=== PATIENT | male | born 1980 | race Caucasian/White ===

== ENCOUNTER 2017-10-24 21:49 | Emergency (ER) | payer OTHER ==
[2017-10-24 22:05] VITALS: BP 133/74
[2017-10-24] MEDS ORDERED: Sulfamethox/Trimethoprim DS 800/160* TAB PO ONE (22:07)
[2017-10-24] MEDS ORDERED: Ketorolac INJ* 60 MG/2 ML VIAL IM ONE (22:07)
--- NOTE | 2017-10-24 22:18 | UC ---
Nakul Lawler Elizabeth, scribed for Wale Robles MD on 10/24/17 at 2213 . Skin Complaint HPI - HPI Summary HPI Summary: This patient is a 37 year old M presenting to [facility] with a chief complaint of a red, swollen bug bite on his left great toe since earlier this afternoon.The patient thinks that a spider may have bitten him. The patient rates the pain 9/ 10 in severity. Symptoms aggravated by nothing. Symptoms alleviated by nothing. - History of Current Complaint Chief Complaint: UCLowerExtremity Time Seen by Provider: 10/24/17 22:06 Stated Complaint: SPIDER BITE Hx Obtained From: Patient Onset/Duration: Sudden Onset, Still Present Timing: Constant Onset Severity: Mild Current Severity: Moderate Pain Intensity: 9 Pain Scale Used: 0-10 Numeric Location: Foot (Left) - left great toe Character: Swelling, Pruritus Aggravating Factor(s): Nothing Alleviating Factor(s): Nothing Related History: Insect Bite/Sting - Allergy/Home Medications Allergies/Adverse Reactions: Allergies Allergy/AdvReac Type Severity Reaction Status Date / Time No Known Allergies Allergy Verified 10/24/17 22:05 Review of Systems Skin: Rash - erythema on left great toe and top of left foot ENT: Negative - NEGATIVE EPISTAXIS Gastrointestinal: Negative - NEGATIVE VOMITING Neurological: Negative - NEGATIVE HEADACHE All Other Systems Reviewed And Are Negative: Yes PMH/Surg Hx/FS Hx/Imm Hx Previously Healthy: Yes - Surgical History Surgical History: Yes Surgery Procedure, Year, and Place: RIGHT ROTATOR CUFF (MAR 2014) - Family History Known Family History: Positive: None - patient denies FHx - Social History Alcohol Use: None Alcohol Amount: NONE IN 10 YRS Substance Use Type: None Smoking Status (MU): Heavy Every Day Tobacco Smoker Type: Cigarettes Amount Used/How Often: 1 PPD Have You Smoked in the Last Year: Yes When Did the Patient Quit Smoking/Using Tobacco: 2 PACKS/WEEK Household Exposure Type: Cigarettes Physical Exam - Summary Physical Exam Summary: VITAL SIGNS: Reviewed. GENERAL: Patient is a well-developed and nourished MALE who is lying comfortable in the stretcher. Patient is not in any acute respiratory distress. HEAD AND FACE: Normocephalic EYES: PERRLA, EOMI x 2. EARS: Hearing grossly intact. MOUTH: Oropharynx within normal limits. NECK: Supple, trachea is midline, no adenopathy, no JVD, no carotid bruit. CHEST: Symmetric, no tenderness at palpation LUNGS: Clear to auscultation bilaterally. No wheezing or crackles. CVS: Regular rate and rhythm, S1 and S2 present, no murmurs or gallops appreciated. ABDOMEN: Soft, non-tender. Bowel sounds are normal. No abdominal abnormal pulsations. EXTREMITIES: Full ROM in all major joints, no edema, no cyanosis or clubbing. Good pulses and good capillary refill in left foot NEURO: Alert and oriented x 3. No acute neurological deficits. Speech is normal and follows commands. SKIN: Dry and warm, erythema in dorsal aspect of left great toe and dorsal aspect of left foot Triage Information Reviewed: Yes Vital Signs: Initial Vital Signs Temp 100.4 F 10/24/17 22:00 Pulse 86 10/24/17 22:00 Resp 16 10/24/17 22:00 BP 133/74 10/24/17 22:00 Pulse Ox 100 10/24/17 22:00 Vital Signs Reviewed: Yes Course/Dx - Course Course Of Treatment: The patient seems to have left foot cellulitis for which the patient was given Bactrim the patient also was given 1 dose of Toradol for the pain. He will be discharged home with a Prescription for Bactrim and naproxen. He was asked to return to the urgent care if the swelling and erythema and the pain increases. He understands and agrees - Diagnoses Provider Diagnoses: cellulitis Discharge - Sign-Out/Discharge Documenting (check all that apply): Discharge/Admit/Transfer - Discharge Plan Condition: Stable Disposition: HOME Discharge Disposition Comment: discharge home Prescriptions: Naproxen [Naproxen 500 mg tab] 500 mg PO BID #20 tablet Sulfamethox/Trimethoprim DS* [Bactrim DS 800/160 TAB*] 1 tab PO BID #20 tab Patient Education Materials: Cellulitis (ED) Forms: *Work Release Referrals: Rg Banuelos MD [Primary Care Provider] - - Billing Disposition and Condition Condition: STABLE Disposition: Home The documentation as recorded by the Nakul aleman Elizabeth accurately reflects the service I personally performed and the decisions made by Travis swan Walter, MD.
== END 2017-10-24 22:25 | disposition home or self-care (01) ==
LOC: UCEAST 21:49
DX: S90.462A Insect bite (nonvenomous), left great toe, initial encounter (principal); L03.032 Cellulitis of left toe; W57.XXXA Bitten or stung by nonvenomous insect and other nonvenomous arthropods, initial encounter; Y93.9 Activity, unspecified; Y92.9 Unspecified place or not applicable; F17.210 Nicotine dependence, cigarettes, uncomplicated
CPT/HCPCS: 96372; 99212; A9270-GY; G0463; J1885